=== PATIENT | female | born 1945 | race Caucasian/White ===

== ENCOUNTER 2022-12-09 23:03 | Observation (INO) | payer MEDICARE, MEDICAID, SELFPAY ==
[2022-12-10] VITALS (19 sets, daily range): BP systolic 117–138; BP diastolic 58–76; PULSE 60–68; RESP 18; TEMP 36.6–36.8; O2SAT 90–99; BMI 32.8
--- NOTE | 2022-12-10 02:34 | PC.NURSE ---
pt. awake alert. pt. is bedrest.
--- NOTE | 2022-12-10 04:07 | PC.NURSE ---
Patient had this site upon admission
--- NOTE | 2022-12-10 05:00 | ECG_ITS ---
The [facility] Test Date: 2022-12-10 Pat Name: Yanna Tenorio Department: Room: [facility] Gender: Female N[place] Up: : 1945 Requested By: [id number] Order Number: [id number] Reading MD: JONATHAN ARMIREZ Measurements Intervals [place] Rate: 65 P: 71 [place]: 170 QRS: 34 QRSD: 97 T: 29 QT: 420 QTc: 439 Interpretive Statements SINUS RHYTHM No previous ECG available for comparison Electronically Signed On 12-12-2022 15:32:09 EDT by JONATHAN RAMIREZ
[2022-12-10 05:37] LABS: Basophils Absolute Auto 0.1 10^3/uL (0.0-0.1); Basophils Percent Auto 0.5 % (0.2-2.0); Eosinophils Absolute Auto 0.5 10^3/uL (0.0-0.7); Eosinophils Percent Auto 3.9 % (0.9-7.0); Hematocrit 35.5 % (36.0-48.0); Hemoglobin 11.5 g/dL (12.0-16.0); Immature Granulocytes Abs Auto 0.06 10^3/uL (0.00-0.03); Immature Granulocytes Pct Auto 0.5 % (0.0-0.5); Lymphocytes Absolute Auto 2.7 10^3/uL (1.2-3.8); Lymphocytes Percent Auto 20.3 % (20.5-60.0); Mean Corpuscular HGB Conc 32.4 g/dL (29.9-35.2); Mean Corpuscular Hemoglobin 29.6 pg (26.7-34.0); Mean Corpuscular Volume 91.3 fL (81.0-99.0); Mean Platelet Volume 9.4 fL (9.5-13.5); Monocytes Absolute Auto 1.3 10^3/uL (0.3-0.8); Monocytes Percent Auto 10.1 % (1.7-12.0); Neutrophils Absolute Auto 8.6 10^3/uL (1.4-6.5); Neutrophils Percent Auto 64.7 % (43.0-75.0); Nucleated Red Blood Cells 0; Platelet Count 239 10^3/uL (150-450); Red Blood Count 3.89 10^6/uL (4.20-5.40); Red Cell Distribution Width 15.1 % (11.0-15.0); White Blood Count 13.2 10^3/uL (4.0-11.0)
[2022-12-10 06:11] LABS: Anion Gap 12.9; BUN Creatinine Ratio 26.9; Calcium 9.3 mg/dL (8.5-10.1); Chloride 97 mmol/L (98-107); Estimated GFR (African America 48 (>=60); Estimated GFR (Non-African Ame 40 (>=60); Glucose 111 mg/dL (74-106); Potassium 3.9 mmol/L (3.5-5.1); Sodium 138 mmol/L (136-145)
--- NOTE | 2022-12-10 06:52 | PC.NURSE ---
daily weight 85.7 kg
--- NOTE | 2022-12-10 08:44 | W.PM.TELEPN ---
Exam Constitutional Vital Signs, click to edit/add: Vital Signs - 24 hr 12/10/22 07:50 12/10/22 00:10 12/10/22 02:03 Temperature Pulse Rate 63 68 67 Respiratory Rate Blood Pressure [Left Arm] Pulse Oximetry Oxygen Delivery Method 12/10/22 03:57 12/10/22 05:37 12/10/22 05:18 Temperature 98 F Pulse Rate 63 64 Respiratory Rate 18 Blood Pressure [Left Arm] 117/58 L Pulse Oximetry 91 L 93 L Oxygen Delivery Method Room Air Room Air 12/10/22 06:11 Temperature Pulse Rate 64 Respiratory Rate Blood Pressure [Left Arm] Pulse Oximetry Oxygen Delivery Method Progress Note: Objective Labs Labs: Short CBC 12/10/22 Range/Units 05:08 WBC 13.2 H (4.0-11.0) 10^3/uL Hgb 11.5 L (12.0-16.0) g/dL Hct 35.5 L (36.0-48.0) % Plt Count 239 (150-450) 10^3/uL BMP 12/10/22 05:08 Sodium 138 Potassium 3.9 Chloride 97 L Carbon Dioxide 32.0 BUN 35.0 H Creatinine 1.30 H Glucose 111 H Calcium 9.3 Progress Note: A&P Fall Risk Details Dumont Fall Scale Risk Level: High Fall Risk Time Spent With Patient Time: Total time spent is greater than 50% in coordination of care (as documented) at patient's floor/unit and/or counseling patient: Telemedicine Attestation Telemedicine Attestation I conducted this encounter from [] via secure live, [id number] video conference with the patient, CHARGE TEST-CHARGES located at [facility] with []. Prior to the interview, the risks and benefits of telemedicine were discussed with the patient and verbal consent was obtained.
--- NOTE | 2022-12-10 11:16 | RESP.RT ---
Pt denies need for mdi at this time. No distress noted
[2022-12-10] MEDS: APIXABAN 5 MG TABLET PO ×2 (11:40→22:43)
[2022-12-10] MEDS: TIMOLOL MALEATE 0.5% OP SOL 100 DROPS/5 ML BOTTLE 1 DROP OP (11:40)
[2022-12-10] MEDS: DILTIAZEM HCL 120 MG CAP.ER.24H PO (11:40)
[2022-12-10] MEDS: METOPROLOL TARTRATE 100 MG TABLET PO ×2 (11:40→22:43)
[2022-12-10] MEDS: POTASSIUM CHLORIDE 10 MEQ ER TABLET 20 MEQ PO (11:43)
--- NOTE | 2022-12-10 12:43 | PM.HP ---
H&P: HPI History of Present Illness Chief complaint: CHF Narrative: Patient is a 77-year-old female with history of atrial fibrillation, on anticoagulation with Eliquis, dyslipidemia, hypertension, GERD, CAD, artificial mitral valve and aortic valve, pacemaker, and LEFT leg amputation who presented to the ED for evaluation of shortness of breath. She awakened at 8AM and was in atrial fibrillation and was notified by her device. This continued until 3PM when she developed shortness of breath and came to the ED for further evaluation. She is in sinus rhythm , has received 80mg IV Lasix in the ER and states that her symptoms are improving. She takes Bumex 2mg BID as outpatient. On lab work, she is noted to have a BNP of 5576 on admission. Last Echo was 11/02/22 and was unchanged from previous.She denies chest pain, fevers, chills, nausea, and cough. She reports she's been compliant with her medications and has also been on a fluid restriction. Review of Systems ROS Narrative ROS: a complete review of systems were reviewed with patient and are positive as below or listed in History of Chief Complaint. General: no fever, chills, night sweats Head: no headache, trauma, visual changes, nausea or vomiting Skin: no reported rashes, itching or sores Eyes: no blurriness of vision Ears: no reported hearing loss, vertigo, earache, or tinnitus Throat: no sore throat, hoarseness, swelling of neck, or tongue pain Heart: no chest pain Lungs: some shortness of breath, no cough GI: no diarrhea or vomiting/nausea Urinary: no urinary urgency, frequency or pain Neuro: no numbness or tingling HEM: no bleeding issues or bruising ENDO: no thyroid problems Psych: no anxiety or depression Meds Home Medications and Allergies Home Medications Medication Instructions Recorded Confirmed Type B-complex with vitamin C 1 tab PO ONCE 12/10/22 12/10/22 History albuterol sulfate 2.5 mg/3 mL 2.5 mg inhalation Q6H PRN 12/10/22 12/10/22 History (0.083 %) solution for nebulization shortness of breath or wheezing albuterol sulfate 90 mcg/actuation 2 puff inhalation Q6H PRN 12/10/22 12/10/22 History aerosol inhaler shortness of breath or wheezing apixaban 5 mg tablet (Eliquis) 5 mg PO Q12H 12/10/22 12/10/22 History aspirin 81 mg tablet,delayed 81 mg PO .daily 12/10/22 12/10/22 History release bumetanide 2 mg tablet 2 mg PO BID 12/10/22 12/10/22 History calcitriol 0.25 mcg capsule 0.25 mcg PO .daily 12/10/22 12/10/22 History calcium carbonate 500 mg-vitamin 1 tab PO QDAY 12/10/22 12/10/22 History D3 10 mcg (400 unit) tablet (Calcium 500 + D) diltiazem HCl 120 mg 120 mg PO Q24H 12/10/22 12/10/22 History capsule,extended release 24 hr guaifenesin 1,200 mg tablet, 1,200 mg PO Q12H PRN cough 12/10/22 12/10/22 History extended release 12 hr (Mucinex) levothyroxine 25 mcg tablet 50 mcg PO .daily 12/10/22 12/10/22 History magnesium oxide 400 mg PO TID 12/10/22 12/10/22 History metoprolol tartrate 100 mg tablet 100 mg PO Q12H 12/10/22 12/10/22 History omeprazole 40 mg capsule,delayed 40 mg PO .every day at bedtime 12/10/22 12/10/22 History release potassium chloride 20 mEq 20 meq PO .daily 12/10/22 12/10/22 History tablet,extended release(part/cryst) rosuvastatin 20 mg tablet 20 mg PO .daily 12/10/22 12/10/22 History spironolactone 25 mg tablet 25 mg PO .daily 12/10/22 12/10/22 History timolol maleate 0.5 % eye drops 1 drp ophthalmic (eye) Q12H 12/10/22 12/10/22 History zinc 50 mg tablet 50 mg PO QDAY 12/10/22 12/10/22 History Allergies Allergy/AdvReac Type Severity Reaction Status Date / Time cortisone Allergy Severe Verified 12/10/22 01:22 Penicillins Allergy Severe Rash Verified 12/10/22 01:22 meperidine [From Demerol] AdvReac Severe Verified 12/10/22 01:22 iv dye Allergy Severe Hives Uncoded 12/10/22 01:22 BACTRIM Allergy Uncoded 12/10/22 01:22 Exam Narrative: Exam Narrative: General: Patient is alert, and oriented to person, place and time with normal affect, proper hygiene, appears in no acute distress Skin: no visible rashes, or ulcers Head: atraumatic, acephalic Eyes: PERRLA, no nystagmus present, conjunctiva clear, no scleral icterus Ears: normal gross auditory acuity Neck: no masses palpated, normal thyroid, no JVD or audible carotid bruits Heart: Normal rate and rhythm, no murmurs/rubs/gallops Lungs: no audible wheezes, crackles and normal breath sounds all lung sung Abdomen: Normal audible bowel sounds, no distension, No palpable masses, no organomegaly, no rebound/guarding/ or rigidity Musculoskeletal: muscle atrophy noted, left leg amputation Vascular: Normal carotid, radial, femoral, posterior tibial, and dorsalis pedis pulses Lymph: no supraclavicular, axillary, or anterior/posterior cervical adenopathy Neuro: CN II-X grossly intact, normal sensation upper and lower extremities Constitutional: Vital Signs, click to edit/add: Vital Signs - 24 hr 12/10/22 07:50 12/10/22 10:26 12/10/22 11:13 Temperature Pulse Rate 63 62 Respiratory Rate Blood Pressure [Le ft Arm] Pulse Oximetry 95 Oxygen Delivery Me thod Room Air 12/10/22 11:48 12/10/22 12:01 12/10/22 00:10 Temperature 98.0 F Pulse Rate 62 62 68 Respiratory Rate 18 Blood Pressure [Le ft Arm] 138/76 H Pulse Oximetry 92 L Oxygen Delivery Me thod 12/10/22 02:03 12/10/22 03:57 12/10/22 05:37 Temperature 98 F Pulse Rate 67 63 64 Respiratory Rate 18 Blood Pressure [Le ft Arm] 117/58 L Pulse Oximetry 91 L Oxygen Delivery Me thod Room Air 12/10/22 05:18 12/10/22 06:11 Temperature Pulse Rate 64 Respiratory Rate Blood Pressure [Le ft Arm] Pulse Oximetry 93 L Oxygen Delivery Me thod Room Air Results Labs Labs: Short CBC 12/10/22 Range/Units 05:08 WBC 13.2 H (4.0-11.0) 10^3/uL Hgb 11.5 L (12.0-16.0) g/dL Hct 35.5 L (36.0-48.0) % Plt Count 239 (150-450) 10^3/uL BMP 12/10/22 05:08 Sodium 138 Potassium 3.9 Chloride 97 L Carbon Dioxide 32.0 BUN 35.0 H Creatinine 1.30 H Glucose 111 H Calcium 9.3 Assessment and Plan Assessment and Plan (1) Acute on chronic diastolic congestive heart failure: (2) Atrial fibrillation with controlled ventricular response: Plan #1 acute decompensated diastolic heart failure-elevated proBNP, is placed on telemetry with a 1.5 L fluid restriction. Placed on Lasix 80 mg IV once a day, hold home Bumex. Echocardiogram 10/2022 was unchanged. continue to monitor daily weights and strict ins and outs. continue spironolactone #2 history of atrial fibrillation-continue home medications of dilt, isosorbide, metoprolol and Eliquis #3 artificial mitral and aortic valves, pacemaker-patient will be continued on Eliquis #4 CAD, history of CABG- continue rosuvastatin and eliquis #5 HTN- continue home meds listed above #6 hypothyroidism continue levothyroxine #7 hypomagnesemia-monitor daily magnesium and continue oral supplements #8 GERD continue omeprazole #9 [id number] type 2 diabetes-on metformin continue sliding scale insulin #10 chronic kidney disease stage III-monitor daily especially with diuresis patient will continue on Eliquis for deep vein thrombosis prophylaxis patient is a full code Patient is observation status and is expected to stay no more than two midnights
--- NOTE | 2022-12-10 12:54 | SWNOTE1 ---
SW met with pt to discuss dc needs. Pt voiced she is doing well at home, no concerns for discharge. She uses her wheelchair at home and has been up and down the hallways. PATRICK voiced to pt that she does seem a little down today, but pt stated she was fine. No HH currently coming in and pt does not want/or need any HH. At this time pt has no dishcarge needs.
[2022-12-10] MEDS: MAGNESIUM OXIDE 400 MG TABLET PO ×2 (13:28→22:43)
[2022-12-10] MEDS: FUROSEMIDE 40 MG/4 ML VIAL IVP (13:28)
[2022-12-10 14:52] LABS: Glucometer 136 mg/dL (74-106)
[2022-12-10 16:24] LABS: Glucometer 141 mg/dL (74-106)
[2022-12-10 20:25] LABS: Glucometer 154 mg/dL (74-106)
[2022-12-11] VITALS (10 sets, daily range): BP systolic 108–128; BP diastolic 69–76; PULSE 60–71; RESP 18–20; TEMP 36.3–36.6; O2SAT 93–96
[2022-12-11] MEDS: TIMOLOL MALEATE 0.5% OP SOL 100 DROPS/5 ML BOTTLE 1 DROP OP ×2 (01:22→08:48)
[2022-12-11] MEDS: FUROSEMIDE 40 MG/4 ML VIAL IVP ×2 (01:22→08:41)
[2022-12-11] MEDS: MAGNESIUM OXIDE 400 MG TABLET PO ×2 (05:04→14:09)
[2022-12-11 05:52] LABS: Basophils Absolute Auto 0.1 10^3/uL (0.0-0.1); Basophils Percent Auto 0.6 % (0.2-2.0); Eosinophils Absolute Auto 0.5 10^3/uL (0.0-0.7); Eosinophils Percent Auto 4.3 % (0.9-7.0); Hemoglobin 11.4 g/dL (12.0-16.0); Immature Granulocytes Abs Auto 0.07 10^3/uL (0.00-0.03); Immature Granulocytes Pct Auto 0.6 % (0.0-0.5); Lymphocytes Absolute Auto 2.8 10^3/uL (1.2-3.8); Lymphocytes Percent Auto 23.3 % (20.5-60.0); Mean Corpuscular HGB Conc 32.6 g/dL (29.9-35.2); Mean Corpuscular Hemoglobin 29.8 pg (26.7-34.0); Mean Corpuscular Volume 91.6 fL (81.0-99.0); Mean Platelet Volume 9.6 fL (9.5-13.5); Monocytes Absolute Auto 1.2 10^3/uL (0.3-0.8); Monocytes Percent Auto 9.9 % (1.7-12.0); Neutrophils Absolute Auto 7.3 10^3/uL (1.4-6.5); Neutrophils Percent Auto 61.3 % (43.0-75.0); Nucleated Red Blood Cells 0; Platelet Count 238 10^3/uL (150-450); Red Blood Count 3.82 10^6/uL (4.20-5.40); Red Cell Distribution Width 15.2 % (11.0-15.0); White Blood Count 11.9 10^3/uL (4.0-11.0)
[2022-12-11 08:12] LABS: Glucometer 118 mg/dL (74-106)
[2022-12-11] MEDS: ASPIRIN 81 MG TABLET.DR PO (08:37)
[2022-12-11 08:40] LABS: Alanine Aminotransferase 18 U/L (14-59); Albumin Globulin Ratio 0.8; Albumin Level 3.3 g/dL (3.4-5.0); Alkaline Phosphatase 103 U/L (46-116); Anion Gap 10.3; Aspartate Amino Transferase 17 U/L (15-37); BUN Creatinine Ratio 33.6; Bilirubin Total 0.3 mg/dL (0.2-1.0); Calcium 9.2 mg/dL (8.5-10.1); Carbon Dioxide 33.5 mmol/L (21.0-32.0); Chloride 96 mmol/L (98-107); Estimated GFR (African America 52 (>=60); Estimated GFR (Non-African Ame 43 (>=60); Globulin 4.2 g/dL; Glucose 118 mg/dL (74-106); Potassium 3.8 mmol/L (3.5-5.1); Sodium 136 mmol/L (136-145); Total Protein 7.5 g/dL (6.4-8.2)
[2022-12-11] MEDS: APIXABAN 5 MG TABLET PO (08:40)
[2022-12-11] MEDS: DILTIAZEM HCL 120 MG CAP.ER.24H PO (08:40)
[2022-12-11] MEDS: METOPROLOL TARTRATE 100 MG TABLET PO (08:43)
[2022-12-11] MEDS: SPIRONOLACTONE 25 MG TABLET PO (08:45)
[2022-12-11] MEDS: POTASSIUM CHLORIDE 10 MEQ ER TABLET 20 MEQ PO (08:47)
[2022-12-11 08:50] LABS: Magnesium 2.2 mg/dL (1.8-2.4); Thyroid Stimulating Hormone 3.872 uIU/mL (0.358-3.740)
--- NOTE | 2022-12-11 10:48 | CM.NOTE ---
Rounds made with rosmery Carlos for discharge to home today. No discharge needs at this time.
[2022-12-11] MEDS: LEVOTHYROXINE SODIUM 25 MCG TABLET 50 MCG PO (11:31)
[2022-12-11 11:34] LABS: Glucometer 114 mg/dL (74-106)
--- NOTE | 2022-12-11 12:03 | PM.DS1 ---
DS: Providers Provider Date of admission: 12/09/22 23:03 Primary care physician: TEST TEST DS: Diagnosis Discharge Diagnosis (1) Acute on chronic diastolic congestive heart failure: (2) Atrial fibrillation with controlled ventricular response: DS: Summary Hospital Course Hospital Course: #1 acute decompensated diastolic heart failure-elevated proBNP 5,000 on admission, now 2,000, is placed on telemetry with a 1.5 L fluid restriction. Placed on Lasix 40 mg IV bid, hold home Bumex. Echocardiogram 10/2022 was unchanged, no reason for repeat. continue to monitor daily weights and strict ins and outs. continue spironolactone. Home today. Not requiring any oxygen, no swelling, in no acute distress and wheeling down the hallway #2 history of atrial fibrillation-continue home medications of dilt, isosorbide, metoprolol and Eliquis #3 artificial mitral and aortic valves, pacemaker-patient will be continued on Eliquis #4 CAD, history of CABG- continue rosuvastatin and eliquis #5 HTN- continue home meds listed above #6 hypothyroidism continue levothyroxine #7 hypomagnesemia-monitor daily magnesium and continue oral supplements #8 GERD continue omeprazole #9 [id number] type 2 diabetes-on metformin continue sliding scale insulin #10 chronic kidney disease stage III-monitor daily especially with diuresis close 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, in NSR, symptoms have improved and patient now at baseline Status at Discharge Functional status at discharge: wheelchair bound Time Spent with Patient Time attestation: Total time spent providing and/or coordinating discharge services: Time spent: less than 30 minutes Exam Narrative: Exam Narrative: General: Patient is alert, and oriented to person, place and time with normal affect, proper hygiene Skin: no visible rashes, or ulcers Head: atraumatic, acephalic Eyes: PERRLA, no nystagmus present, conjunctiva clear, no scleral icterus Ears: normal gross auditory acuity Nose: symmetric, no discharge, no maxillary or frontal sinus tenderness Mouth/Throat: no erythema, exudate, or tonsillar enlargement, normal dentition Neck: no masses palpated, normal thyroid, no JVD or audible carotid bruits Heart: Normal rate and rhythm, paced, no murmurs/rubs/gallops Lungs: no audible wheezes, crackles and normal breath sounds all lung sung Musculoskeletal: , no swelling right lower extremities, Left Below the hip amputation Lymph: no supraclavicular, axillary, or anterior/posterior cervical adenopathy Neuro: CN II-X grossly intact, normal sensation upper and lower extremities Constitutional: Vital Signs, click to edit/add: Vital Signs - 24 hr 12/10/22 14:07 12/10/22 16:00 12/10/22 18:09 Temperature Pulse Rate 66 61 61 Respiratory Rate Blood Pressure [Ri ght Arm] Pulse Oximetry Oxygen Delivery Me thod 12/10/22 20:05 12/10/22 20:23 12/10/22 20:21 Temperature Pulse Rate 64 Respiratory Rate 18 Blood Pressure [Ri ght Arm] Pulse Oximetry 99 Oxygen Delivery Me thod Room Air 12/10/22 21:27 12/10/22 22:03 12/11/22 00:03 Temperature 98.3 F Pulse Rate 61 60 62 Respiratory Rate 18 Blood Pressure [Ri ght Arm] 125/71 H Pulse Oximetry 90 L Oxygen Delivery Me thod Room Air 12/11/22 02:02 12/11/22 04:47 12/11/22 04:50 Temperature 97.9 F Pulse Rate 71 65 66 Respiratory Rate 18 Blood Pressure [Ri ght Arm] 108/69 Pulse Oximetry 96 Oxygen Delivery Me thod Room Air 12/11/22 06:13 12/11/22 07:58 12/11/22 09:51 Temperature Pulse Rate 60 60 61 Respiratory Rate Blood Pressure [Ri ght Arm] Pulse Oximetry Oxygen Delivery Me thod 12/11/22 11:53 Temperature Pulse Rate 60 Respiratory Rate Blood Pressure [Ri ght Arm] Pulse Oximetry Oxygen Delivery Me thod DS: Data Data Completed and Pending Labs on day of discharge: Labs from last 24 hours 12/11/22 12/11/22 12/11/22 11:29 08:03 04:32 WBC 11.9 H RBC 3.82 L Hgb 11.4 L Hct 35.0 L MCV 91.6 MCH 29.8 MCHC 32.6 RDW 15.2 H Plt Count 238 MPV 9.6 Neut % (Auto) 61.3 Lymph % (Auto) 23.3 [place] % (Auto) 9.9 Eos % (Auto) 4.3 Baso % (Auto) 0.6 Neut # (Auto) 7.3 H Lymph # (Auto) 2.8 [place] # (Auto) 1.2 H Eos # (Auto) 0.5 Baso # (Auto) 0.1 Nucleated RBCs 0 Sodium 136 Potassium 3.8 Chloride 96 L Carbon Dioxide 33.5 H Anion Gap 10.3 BUN 41.0 H Creatinine 1.22 H Est GFR ( Amer) 52 L Est GFR (Non-Af Amer) 43 L BUN/Creatinine Ratio 33.6 Glucose 118 H Glucometer 114 H 118 H Calcium 9.2 Magnesium 2.2 Total Bilirubin 0.3 AST 17 ALT 18 NT-Pro-B Natriuret Pep 2044.0 H* Total Protein 7.5 Albumin 3.3 L Globulin 4.2 Albumin/Globulin Ratio 0.8 TSH 3.872 H 12/10/22 12/10/22 12/10/22 20:24 16:18 11:23 WBC RBC Hgb Hct MCV MCH MCHC RDW Plt Count MPV Neut % (Auto) Lymph % (Auto) [place] % (Auto) Eos % (Auto) Baso % (Auto) Neut # (Auto) Lymph # (Auto) [place] # (Auto) Eos # (Auto) Baso # (Auto) Nucleated RBCs Sodium Potassium Chloride Carbon Dioxide Anion Gap BUN Creatinine Est GFR ( Amer) Est GFR (Non-Af Amer) BUN/Creatinine Ratio Glucose Glucometer 154 H 141 H 136 H Calcium Magnesium Total Bilirubin AST ALT NT-Pro-B Natriuret Pep Total Protein Albumin Globulin Albumin/Globulin Ratio TSH Discharge Plan Discharge Disposition: Home, Self-Care Discharge Medications: Continued albuterol sulfate 2.5 mg /3 mL (0.083 %) solution for nebulization 2.5 mg inhalation Q6H PRN (Reason: shortness of breath or wheezing) albuterol sulfate 90 mcg/actuation HFA aerosol inhaler 2 puff INHALATION Q6H PRN (Reason: shortness of breath or wheezing) Eliquis 5 mg tablet 5 mg PO Q12H aspirin 81 mg tablet,delayed release (DR/EC) 81 mg PO .daily bumetanide 2 mg tablet 2 mg PO BID B-complex with vitamin C Tablet 1 tab PO ONCE calcitriol 0.25 mcg capsule 0.25 mcg PO .daily calcium carbonate-vitamin D3 [Calcium 500 + D] 500 mg-10 mcg (400 unit) tablet 1 tab PO QDAY diltiazem HCl 120 mg capsule,extended release 24hr 120 mg PO Q24H Mucinex 1,200 mg tablet extended release 12hr 1,200 mg PO Q12H PRN (Reason: cough) levothyroxine 25 mcg tablet 50 mcg PO .daily magnesium oxide 400 mg magnesium capsule 400 mg PO TID metoprolol tartrate 100 mg tablet 100 mg PO Q12H omeprazole 40 mg capsule,delayed release(DR/EC) 40 mg PO .every day at bedtime timolol maleate 0.5 % drops 1 drp ophthalmic (eye) Q12H potassium chloride 20 mEq tablet,ER particles/crystals 20 meq PO .daily spironolactone 25 mg tablet 25 mg PO .daily rosuvastatin 20 mg tablet 20 mg PO .daily zinc 50 mg tablet 50 mg PO QDAY Activity: resume usual activities as tolerated and wear oxygen at night Diet: diabetic diet and low salt diet Forms: Portal Instructions Follow Up Appointments: her stock parts fabricator 1 week, no changes to home medications
[2022-12-11 16:03] LABS: Glucometer 199 mg/dL (74-106)
== END 2022-12-11 16:58 | disposition home or self-care (01) ==
PROVIDERS: Admitting Provider Family Medicine; Visit Provider Internal Medicine
DX: I13.0 Hypertensive heart and chronic kidney disease with heart failure and stage 1 through stage 4 chronic kidney disease, or unspecified chronic kidney disease (principal); I50.33 Acute on chronic diastolic (congestive) heart failure; I48.91 Unspecified atrial fibrillation; I11.0 Hypertensive heart disease with heart failure; E11.22 Type 2 diabetes mellitus with diabetic chronic kidney disease; N18.30 Chronic kidney disease, stage 3 unspecified; I25.10 Atherosclerotic heart disease of native coronary artery without angina pectoris; E03.9 Hypothyroidism, unspecified; E83.42 Hypomagnesemia; K21.9 Gastro-esophageal reflux disease without esophagitis; Z95.1 Presence of aortocoronary bypass graft; Z95.0 Presence of cardiac pacemaker; Z95.2 Presence of prosthetic heart valve; Z79.890 Hormone replacement therapy; Z79.84 Long term (current) use of oral hypoglycemic drugs; Z79.01 Long term (current) use of anticoagulants; Z79.899 Other long term (current) drug therapy; Z89.612 Acquired absence of left leg above knee
CPT/HCPCS: 36415; 71045; 80048; 80053; 82948; 83735; 83880; 84443; 84484; 85025; 85610; 85730; 87635; 87811; 93005; 94761; 96374; 96376; 97165; 99285; G0378; Q3014; U0003

== ENCOUNTER 2022-12-26 15:38 | Emergency (ER) | payer MEDICARE, MEDICAID, SELFPAY ==
[2022-12-26] VITALS (7 sets, daily range): BP systolic 115–132; BP diastolic 46–64; PULSE 62–64; RESP 18–28; TEMP 36.6; O2SAT 95–98
--- NOTE | 2022-12-26 15:54 | ECG_ITS ---
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
--- NOTE | 2022-12-26 15:54 | XR_ITS ---
The [address] [address] Patient Name: LOKI SALEH MRN: [id number] date: 1945 Sex: F Assigned Patient Location: ER Current Patient Location: ER Accession/Order Number: [id number] Exam Date: 12/26/2022 16:12 Report Date: 12/26/2022 16:34 At the request of: ANNAMARIE PEREA Procedure: XR chest 1V PROCEDURE: XR chest 1V DATE: 12/26/2022 3:12 PM CDT COMPARISONS: 12/09/2022 CLINICAL INDICATION: 77 years Female dyspnea FINDINGS: The cardiomediastinal silhouette and pulmonary vasculature are within normal limits. There is slight infrahilar atelectasis, right greater than left, due to less than optimal inspiratory radiograph. The lungs are otherwise clear. There is no evidence of pleural effusion or pneumothorax. Poststernotomy changes again identified. Electronic cardiac device is in stable position. IMPRESSION: Chest radiograph is essentially within normal limits. Electronically authenticated by: MIGUEL ANGEL HOLDER Date: 12/26/2022 16:34
--- NOTE | 2022-12-26 15:58 | ED.SOB1 ---
HPI - SOB/Dyspnea General Chief Complaint: Shortness of Breath/Dyspnea Stated Complaint: SOB/HEART FAILURE Time Seen by Provider: 12/26/22 15:54 Source: patient Mode of arrival: Wheelchair Limitations: physical limitation Limitations comment: pt is a L leg amputee History of Present Illness HPI Narrative: patient presents with shortness of breath. She is fearful that she may be in congestive heart failure. She states that she has not had previous myocardial infarction. She has had two heart valves replaced, one big valve one GABRIEL valve at [facility]. At was about three years ago. 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 She states that she has slight increased swelling on the right. She's not had cough congestion runny nose sore throat or sputum production. She's not had having a squeezing pressure or discomfort in her chest arm or neck. She's not change her medications and she's been compliant. Her vital signs are good here with a pulse oximetry ninety-seven percent on room air. She does wear oxygen at nighttime only. He has not had a fever. Related Data Home Medications Medication Instructions Recorded Confirmed B-complex with vitamin C 1 tab PO ONCE 12/10/22 12/10/22 albuterol sulfate 2.5 mg/3 mL 2.5 mg inhalation Q6H PRN 12/10/22 12/10/22 (0.083 %) solution for nebulization shortness of breath or wheezing albuterol sulfate 90 mcg/actuation 2 puff inhalation Q6H PRN 12/10/22 12/10/22 aerosol inhaler shortness of breath or wheezing apixaban 5 mg tablet (Eliquis) 5 mg PO Q12H 12/10/22 12/10/22 aspirin 81 mg tablet,delayed 81 mg PO .daily 12/10/22 12/10/22 release bumetanide 2 mg tablet 2 mg PO BID 12/10/22 12/10/22 calcitriol 0.25 mcg capsule 0.25 mcg PO .daily 12/10/22 12/10/22 calcium carbonate 500 mg-vitamin 1 tab PO QDAY 12/10/22 12/10/22 D3 10 mcg (400 unit) tablet (Calcium 500 + D) diltiazem HCl 120 mg 120 mg PO Q24H 12/10/22 12/10/22 capsule,extended release 24 hr guaifenesin 1,200 mg tablet, 1,200 mg PO Q12H PRN cough 12/10/22 12/10/22 extended release 12 hr (Mucinex) levothyroxine 25 mcg tablet 50 mcg PO .daily 12/10/22 12/10/22 magnesium oxide 400 mg PO TID 12/10/22 12/10/22 metoprolol tartrate 100 mg tablet 100 mg PO Q12H 12/10/22 12/10/22 omeprazole 40 mg capsule,delayed 40 mg PO .every day at bedtime 12/10/22 12/10/22 release potassium chloride 20 mEq 20 meq PO .daily 12/10/22 12/10/22 tablet,extended release(part/cryst) rosuvastatin 20 mg tablet 20 mg PO .daily 12/10/22 12/10/22 spironolactone 25 mg tablet 25 mg PO .daily 12/10/22 12/10/22 timolol maleate 0.5 % eye drops 1 drp ophthalmic (eye) Q12H 12/10/22 12/10/22 zinc 50 mg tablet 50 mg PO QDAY 12/10/22 12/10/22 Allergies Allergy/AdvReac Type Severity Reaction Status Date / Time cortisone Allergy Severe Verified 12/26/22 15:50 Penicillins Allergy Severe Rash Verified 12/26/22 15:50 meperidine [From Demerol] AdvReac Severe Verified 12/26/22 15:50 iv dye Allergy Severe Hives Uncoded 12/26/22 15:50 BACTRIM Allergy Uncoded 12/26/22 15:50 PFSH PFSH Social History Smoking status: Never smoker Exam Narrative Exam Narrative: patient awake alert good historian in good spirits does not appear acutely ill vital signs have been reviewed Constitutional Vital Signs - 24 hr 12/26/22 15:50 Temperature 97.9 F Pulse Rate [Monitor] 64 Respiratory Rate 18 Blood Pressure [Right Arm] 120/51 H Pulse Oximetry 96 Oxygen Delivery Method Room Air [facility] Common normals: normocephalic and head/scalp atraumatic Neck & C-Spine Common normals: no meningeal signs General: trachea midline Respiratory Common normals: normal respiratory effort Other: mild rales right lung base only no wheezing Extremity Other: amputee on the left. Right distal leg shows no pitting edema, no ropiness no erythema or evidence of infection Course Vital Signs Vital signs: Vital Signs Temperature 97.9 F 12/26/22 15:50 Pulse Rate 64 12/26/22 15:50 Respiratory Rate 18 12/26/22 15:50 Blood Pressure 120/51 H 12/26/22 15:50 Pulse Oximetry 96 12/26/22 15:50 Oxygen Delivery Method Room Air 12/26/22 15:50 Temperature 97.9 F 12/26/22 15:50 Pulse Rate 62 12/26/22 16:31 Respiratory Rate 20 12/26/22 16:31 Blood Pressure 132/57 H 12/26/22 17:01 Pulse Oximetry 95 12/26/22 16:31 Oxygen Delivery Method Room Air 12/26/22 15:50 MDM - SOB/Dyspnea MDM Narrative Medical decision making narrative: patient's BNP is chronically mildly elevated and it's not substantially elevated today from previous. Chest x-ray is read as atelectasis. Other chemistries are as somewhat improved but her white blood cell count is increasing. With these symptoms and x-ray findings I will treat her for more of an infectious process. This was discussed with the patient I do not see exacerbation of congestive heart failure at this stage Lab Data Labs: Lab Results 12/26/22 Range/Units 16:05 WBC 14.3 H (4.0-11.0) 10^3/uL RBC 4.07 L (4.20-5.40) 10^6/uL Hgb 12.1 (12.0-16.0) g/dL Hct 37.6 (36.0-48.0) % MCV 92.4 (81.0-99.0) fL MCH 29.7 (26.7-34.0) pg MCHC 32.2 (29.9-35.2) g/dL RDW 14.8 (11.0-15.0) % Plt Count 293 (150-450) 10^3/uL MPV 9.3 L (9.5-13.5) fL Neut % (Auto) 69.8 (43.0-75.0) % Lymph % (Auto) 17.7 L (20.5-60.0) % [place] % (Auto) 7.1 (1.7-12.0) % Eos % (Auto) 4.3 (0.9-7.0) % Baso % (Auto) 0.6 (0.2-2.0) % Neut # (Auto) 10.0 H (1.4-6.5) 10^3/uL Lymph # (Auto) 2.5 (1.2-3.8) 10^3/uL [place] # (Auto) 1.0 H (0.3-0.8) 10^3/uL Eos # (Auto) 0.6 (0.0-0.7) 10^3/uL Baso # (Auto) 0.1 (0.0-0.1) 10^3/uL Abs Immat Gran (auto) 0.07 H (0.00-0.03) 10^3/uL Imm/Tot Granulo (auto) 0.5 (0.0-0.5) % Sodium 134 L (136-145) mmol/L Potassium 3.7 (3.5-5.1) mmol/L Chloride 95 L (98-107) mmol/L Carbon Dioxide 31.3 (21.0-32.0) mmol/L Anion Gap 11.4 BUN 34.0 H (7.0-18.0) mg/dL Creatinine 1.33 H (0.55-1.02) mg/dL Est GFR ( Amer) 47 L (>=60) Est GFR (Non-Af Amer) 39 L (>=60) BUN/Creatinine Ratio 25.6 Glucose 160 H (74-106) mg/dL Calcium 9.5 (8.5-10.1) mg/dL Troponin I High Sens 10.5 (4.0-51.3) pg/mL NT-Pro-B Natriuret Pep 2249.0 H* (<=1800.0) pg/mL Discharge Plan Discharge Chief Complaint: Shortness of Breath/Dyspnea Clinical Impression: Acute dyspnea Patient Disposition: Home, Self-Care Time of Disposition Decision: 16:57 Prescriptions / Home Meds: No Action albuterol sulfate 2.5 mg /3 mL (0.083 %) solution for nebulization 2.5 mg inhalation Q6H PRN (Reason: shortness of breath or wheezing) albuterol sulfate 90 mcg/actuation HFA aerosol inhaler 2 puff INHALATION Q6H PRN (Reason: shortness of breath or wheezing) Eliquis 5 mg tablet 5 mg PO Q12H aspirin 81 mg tablet,delayed release (DR/EC) 81 mg PO .daily bumetanide 2 mg tablet 2 mg PO BID B-complex with vitamin C Tablet 1 tab PO ONCE calcitriol 0.25 mcg capsule 0.25 mcg PO .daily calcium carbonate-vitamin D3 [Calcium 500 + D] 500 mg-10 mcg (400 unit) tablet 1 tab PO QDAY diltiazem HCl 120 mg capsule,extended release 24hr 120 mg PO Q24H Mucinex 1,200 mg tablet extended release 12hr 1,200 mg PO Q12H PRN (Reason: cough) levothyroxine 25 mcg tablet 50 mcg PO .daily magnesium oxide 400 mg magnesium capsule 400 mg PO TID metoprolol tartrate 100 mg tablet 100 mg PO Q12H omeprazole 40 mg capsule,delayed release(DR/EC) 40 mg PO .every day at bedtime timolol maleate 0.5 % drops 1 drp ophthalmic (eye) Q12H potassium chloride 20 mEq tablet,ER particles/crystals 20 meq PO .daily spironolactone 25 mg tablet 25 mg PO .daily rosuvastatin 20 mg tablet 20 mg PO .daily zinc 50 mg tablet 50 mg PO QDAY Instructions: Dyspnea (ED) Stand Alone Forms: Portal Instructions Referrals: Chris Valera [Primary Care Provider] - 1 week Discharge Date/Time: 12/26/22 17:35
[2022-12-26 16:24] LABS: Basophils Absolute Auto 0.1 10^3/uL (0.0-0.1); Basophils Percent Auto 0.6 % (0.2-2.0); Eosinophils Absolute Auto 0.6 10^3/uL (0.0-0.7); Eosinophils Percent Auto 4.3 % (0.9-7.0); Hematocrit 37.6 % (36.0-48.0); Hemoglobin 12.1 g/dL (12.0-16.0); Immature Granulocytes Abs Auto 0.07 10^3/uL (0.00-0.03); Immature Granulocytes Pct Auto 0.5 % (0.0-0.5); Lymphocytes Absolute Auto 2.5 10^3/uL (1.2-3.8); Lymphocytes Percent Auto 17.7 % (20.5-60.0); Mean Corpuscular HGB Conc 32.2 g/dL (29.9-35.2); Mean Corpuscular Hemoglobin 29.7 pg (26.7-34.0); Mean Corpuscular Volume 92.4 fL (81.0-99.0); Mean Platelet Volume 9.3 fL (9.5-13.5); Monocytes Percent Auto 7.1 % (1.7-12.0); Neutrophils Percent Auto 69.8 % (43.0-75.0); Platelet Count 293 10^3/uL (150-450); Red Blood Count 4.07 10^6/uL (4.20-5.40); Red Cell Distribution Width 14.8 % (11.0-15.0); White Blood Count 14.3 10^3/uL (4.0-11.0)
[2022-12-26 16:47] LABS: Anion Gap 11.4; BUN Creatinine Ratio 25.6; Calcium 9.5 mg/dL (8.5-10.1); Carbon Dioxide 31.3 mmol/L (21.0-32.0); Chloride 95 mmol/L (98-107); Estimated GFR (African America 47 (>=60); Estimated GFR (Non-African Ame 39 (>=60); Glucose 160 mg/dL (74-106); Potassium 3.7 mmol/L (3.5-5.1); Sodium 134 mmol/L (136-145); Troponin I High Sensitivity 10.5 pg/mL (4.0-51.3)
[2022-12-26] MEDS: LEVOFLOXACIN 500 MG TABLET PO (17:24)
== END 2022-12-26 17:35 | disposition home or self-care (01) ==
PROVIDERS: Emergency Provider Emergency Medicine Emergency Medical Services; PCP Physician Assistant
DX: R06.00 Dyspnea, unspecified (principal); R06.02 Shortness of breath; Z95.2 Presence of prosthetic heart valve; Z79.82 Long term (current) use of aspirin; Z79.899 Other long term (current) drug therapy; Z89.612 Acquired absence of left leg above knee
CPT/HCPCS: 36415; 71045; 80048; 83880; 84484; 85025; 93005; 99285

== ENCOUNTER 2023-01-06 20:00 | Outpatient (REF) | payer MEDICARE, MEDICAID, SELFPAY | END 2023-01-06 20:01 | disposition home or self-care (01) | LOC: LAB 20:00 | PROVIDERS: PCP Physician Assistant; Visit Provider Nurse Practitioner Primary Care | DX: R30.0 Dysuria (principal) | CPT/HCPCS: 87086; 87150; 87186 ==

== ENCOUNTER 2023-01-08 17:43 | Emergency (ER) | payer MEDICARE, MEDICAID, SELFPAY ==
[2023-01-08 17:50] VITALS: BP 139/63; PULSE 83; RESP 16; TEMP 36.6; O2SAT 97; BMI 34.0
--- NOTE | 2023-01-08 18:00 | XR_ITS ---
[address] [address] Patient Name: LOKI SALEH MRN: [id number] date: 1945 Sex: F Assigned Patient Location: ER Current Patient Location: ED.MAIN Accession/Order Number: [id number] Exam Date: 01/08/2023 18:22 Report Date: 01/08/2023 18:57 At the request of: KWAN WATT Procedure: XR chest 1V EXAMINATION: XR chest 1V HISTORY: Shortness of breath COMPARISON: Portable chest 12/26/2022 TECHNIQUE: Portable chest FINDINGS: The lung parenchyma is free of consolidation or infiltrate. No pneumothorax or pleural effusion. Status post median sternotomy and left-sided cardiac pacemaker. The cardiac, mediastinal and hilar contours are normal. The visualized osseous structures exhibit no gross abnormality. IMPRESSION: No acute cardiopulmonary abnormality. Electronically authenticated by: NADEGE DEAN Date: 01/08/2023 18:57
--- NOTE | 2023-01-08 18:02 | ECG_ITS ---
[facility] Test Date: 2023-01-08 Pat Name: LOKI SALEH Department: Room: - Gender: Female Size Mixer: : 1945 Requested By: 1030 Order Number: [id number] Reading MD: JONATHAN RAMIREZ Measurements Intervals [place] Rate: 67 P: 56 FL: 164 QRS: 43 QRSD: 84 T: 43 QT: 414 QTc: 430 Interpretive Statements 1100 Sinus rhythm 3433 Septal myocardial infarction, probably old 8102 Low QRS voltage in chest leads 9150 abnormal ECG Compared to ECG 12/26/2022 15:57:16 Myocardial infarct finding now present Electronically Signed On 01-10-2023 11:41:17 EDT by JONATHAN RAMIREZ
--- NOTE | 2023-01-08 18:03 | ED.SOB1 ---
HPI - SOB/Dyspnea General Chief Complaint: Shortness of Breath/Dyspnea Stated Complaint: HEADACHE/NEW MED THE PROBLEM? Time Seen by Provider: 01/08/23 17:55 Source: patient Mode of arrival: Wheelchair Limitations: physical limitation History of Present Illness HPI Narrative: 77-year-old female presents for shortness of breath. She seems to have had this for a few days. No fever or productive cough and she is not complaining of chest pain. She called her doctor today who told her to go to the Emergency Room to get checked out. She was started on a new medication three days ago but she doesn't know the name of it. Chronic obstructive pulmonary disease and congestive heart failure. Related Data Home Medications Medication Instructions Recorded Confirmed B-complex with vitamin C 1 tab PO ONCE 12/10/22 12/10/22 albuterol sulfate 2.5 mg/3 mL 2.5 mg inhalation Q6H PRN 12/10/22 12/10/22 (0.083 %) solution for nebulization shortness of breath or wheezing albuterol sulfate 90 mcg/actuation 2 puff inhalation Q6H PRN 12/10/22 12/10/22 aerosol inhaler shortness of breath or wheezing apixaban 5 mg tablet (Eliquis) 5 mg PO Q12H 12/10/22 12/10/22 aspirin 81 mg tablet,delayed 81 mg PO .daily 12/10/22 12/10/22 release bumetanide 2 mg tablet 2 mg PO BID 12/10/22 12/10/22 calcitriol 0.25 mcg capsule 0.25 mcg PO .daily 12/10/22 12/10/22 calcium carbonate 500 mg-vitamin 1 tab PO QDAY 12/10/22 12/10/22 D3 10 mcg (400 unit) tablet (Calcium 500 + D) diltiazem HCl 120 mg 120 mg PO Q24H 12/10/22 12/10/22 capsule,extended release 24 hr guaifenesin 1,200 mg tablet, 1,200 mg PO Q12H PRN cough 12/10/22 12/10/22 extended release 12 hr (Mucinex) levothyroxine 25 mcg tablet 50 mcg PO .daily 12/10/22 12/10/22 magnesium oxide 400 mg PO TID 12/10/22 12/10/22 metoprolol tartrate 100 mg tablet 100 mg PO Q12H 12/10/22 12/10/22 omeprazole 40 mg capsule,delayed 40 mg PO .every day at bedtime 12/10/22 12/10/22 release potassium chloride 20 mEq 20 meq PO .daily 12/10/22 12/10/22 tablet,extended release(part/cryst) rosuvastatin 20 mg tablet 20 mg PO .daily 12/10/22 12/10/22 spironolactone 25 mg tablet 25 mg PO .daily 12/10/22 12/10/22 timolol maleate 0.5 % eye drops 1 drp ophthalmic (eye) Q12H 12/10/22 12/10/22 zinc 50 mg tablet 50 mg PO QDAY 12/10/22 12/10/22 Allergies Allergy/AdvReac Type Severity Reaction Status Date / Time cortisone Allergy Severe Verified 12/26/22 15:50 Penicillins Allergy Severe Rash Verified 12/26/22 15:50 meperidine [From Demerol] AdvReac Severe Verified 12/26/22 15:50 iv dye Allergy Severe Hives Uncoded 12/26/22 15:50 BACTRIM Allergy Uncoded 12/26/22 15:50 Review of Systems ROS Narrative A ten point review of systems is negative except as noted above. PFSH [facility] Social History Smoking status: Never smoker Exam Narrative Exam Narrative: Nurses note and vital signs reviewed and patient is not hypoxic. General: The patient appears well and in no apparent distress. Patient is resting comfortably on cart. Skin: Warm, dry, no pallor noted. There is no rash noted. Head: Normocephalic, atraumatic Eye: Normal conjunctiva, no drainage Ears, Nose, Mouth, and Throat: oral mucosa is moist. Nares patent. Cardiovascular: Regular Rate and Rhythm Respiratory: Patient is in no distress, no accessory muscle use, good air movement present Back: non-tender GI: soft and nontender Musculoskeletal: The patient has no evidence of calf tenderness, no pitting edema, symmetrical pulses noted bilaterally Neurological: A&O, normal speech Psychiatric: Cooperative Constitutional Vital Signs - 24 hr 01/08/23 17:50 Temperature 97.8 F Pulse Rate [Monitor] 83 Respiratory Rate 16 Blood Pressure [Left Arm] 139/63 H Pulse Oximetry 97 Oxygen Delivery Method Room Air Course Vital Signs Vital signs: Vital Signs Temperature 97.8 F 01/08/23 17:50 Pulse Rate 83 01/08/23 17:50 Respiratory Rate 16 01/08/23 17:50 Blood Pressure 139/63 H 01/08/23 17:50 Pulse Oximetry 97 01/08/23 17:50 Oxygen Delivery Method Room Air 01/08/23 17:50 Temperature 97.8 F 01/08/23 17:50 Pulse Rate 83 01/08/23 17:50 Respiratory Rate 16 01/08/23 17:50 Blood Pressure 139/63 H 01/08/23 17:50 Pulse Oximetry 97 01/08/23 17:50 Oxygen Delivery Method Room Air 01/08/23 17:50 MDM - SOB/Dyspnea MDM Narrative Medical decision making narrative: tests are ordered and the patient is signed out to Dr. Abernathy. Differential Diagnosis Differential diagnosis: Likely acute exacerbation of chronic obstructive airways disease, congestive heart failure and community acquired pneumonia Lab Data Labs: Lab Results 01/08/23 Range/Units 18:22 WBC 12.6 H (4.0-11.0) 10^3/uL RBC 4.04 L (4.20-5.40) 10^6/uL Hgb 11.9 L (12.0-16.0) g/dL Hct 37.3 (36.0-48.0) % MCV 92.3 (81.0-99.0) fL MCH 29.5 (26.7-34.0) pg MCHC 31.9 (29.9-35.2) g/dL RDW 14.6 (11.0-15.0) % Plt Count 283 (150-450) 10^3/uL MPV 9.5 (9.5-13.5) fL Neut % (Auto) 64.8 (43.0-75.0) % Lymph % (Auto) 21.1 (20.5-60.0) % [place] % (Auto) 8.4 (1.7-12.0) % Eos % (Auto) 4.5 (0.9-7.0) % Baso % (Auto) 0.6 (0.2-2.0) % Neut # (Auto) 8.1 H (1.4-6.5) 10^3/uL Lymph # (Auto) 2.7 (1.2-3.8) 10^3/uL [place] # (Auto) 1.1 H (0.3-0.8) 10^3/uL Eos # (Auto) 0.6 (0.0-0.7) 10^3/uL Baso # (Auto) 0.1 (0.0-0.1) 10^3/uL Abs Immat Gran (auto) 0.07 H (0.00-0.03) 10^3/uL Imm/Tot Granulo (auto) 0.6 H (0.0-0.5) % Discharge Plan Discharge Chief Complaint: Shortness of Breath/Dyspnea Clinical Impression: Dyspnea Patient Disposition: Still a Patient Prescriptions / Home Meds: No Action albuterol sulfate 2.5 mg /3 mL (0.083 %) solution for nebulization 2.5 mg inhalation Q6H PRN (Reason: shortness of breath or wheezing) albuterol sulfate 90 mcg/actuation HFA aerosol inhaler 2 puff INHALATION Q6H PRN (Reason: shortness of breath or wheezing) Eliquis 5 mg tablet 5 mg PO Q12H aspirin 81 mg tablet,delayed release (DR/EC) 81 mg PO .daily bumetanide 2 mg tablet 2 mg PO BID B-complex with vitamin C Tablet 1 tab PO ONCE calcitriol 0.25 mcg capsule 0.25 mcg PO .daily calcium carbonate-vitamin D3 [Calcium 500 + D] 500 mg-10 mcg (400 unit) tablet 1 tab PO QDAY diltiazem HCl 120 mg capsule,extended release 24hr 120 mg PO Q24H Mucinex 1,200 mg tablet extended release 12hr 1,200 mg PO Q12H PRN (Reason: cough) levothyroxine 25 mcg tablet 50 mcg PO .daily magnesium oxide 400 mg magnesium capsule 400 mg PO TID metoprolol tartrate 100 mg tablet 100 mg PO Q12H omeprazole 40 mg capsule,delayed release(DR/EC) 40 mg PO .every day at bedtime timolol maleate 0.5 % drops 1 drp ophthalmic (eye) Q12H potassium chloride 20 mEq tablet,ER particles/crystals 20 meq PO .daily spironolactone 25 mg tablet 25 mg PO .daily rosuvastatin 20 mg tablet 20 mg PO .daily zinc 50 mg tablet 50 mg PO QDAY Referrals: Chris Valera [Primary Care Provider] - 1 week
[2023-01-08 18:43] LABS: Basophils Absolute Auto 0.1 10^3/uL (0.0-0.1); Basophils Percent Auto 0.6 % (0.2-2.0); Eosinophils Absolute Auto 0.6 10^3/uL (0.0-0.7); Eosinophils Percent Auto 4.5 % (0.9-7.0); Hematocrit 37.3 % (36.0-48.0); Hemoglobin 11.9 g/dL (12.0-16.0); Immature Granulocytes Abs Auto 0.07 10^3/uL (0.00-0.03); Immature Granulocytes Pct Auto 0.6 % (0.0-0.5); Lymphocytes Absolute Auto 2.7 10^3/uL (1.2-3.8); Lymphocytes Percent Auto 21.1 % (20.5-60.0); Mean Corpuscular HGB Conc 31.9 g/dL (29.9-35.2); Mean Corpuscular Hemoglobin 29.5 pg (26.7-34.0); Mean Corpuscular Volume 92.3 fL (81.0-99.0); Mean Platelet Volume 9.5 fL (9.5-13.5); Monocytes Absolute Auto 1.1 10^3/uL (0.3-0.8); Monocytes Percent Auto 8.4 % (1.7-12.0); Neutrophils Absolute Auto 8.1 10^3/uL (1.4-6.5); Neutrophils Percent Auto 64.8 % (43.0-75.0); Platelet Count 283 10^3/uL (150-450); Red Blood Count 4.04 10^6/uL (4.20-5.40); Red Cell Distribution Width 14.6 % (11.0-15.0); White Blood Count 12.6 10^3/uL (4.0-11.0)
[2023-01-08 19:05] LABS: Anion Gap 10.5; BUN Creatinine Ratio 24.6; Calcium 9.2 mg/dL (8.5-10.1); Carbon Dioxide 33.6 mmol/L (21.0-32.0); Chloride 98 mmol/L (98-107); Estimated GFR (African America 50 (>=60); Estimated GFR (Non-African Ame 41 (>=60); Glucose 104 mg/dL (74-106); Potassium 4.1 mmol/L (3.5-5.1); Sodium 138 mmol/L (136-145); Troponin I High Sensitivity 10.3 pg/mL (4.0-51.3)
== END 2023-01-08 19:40 | disposition home or self-care (01) ==
PROVIDERS: Emergency Medicine; Emergency Provider Internal Medicine; PCP Physician Assistant
DX: R06.00 Dyspnea, unspecified (principal); Z79.82 Long term (current) use of aspirin; Z79.899 Other long term (current) drug therapy; Z79.890 Hormone replacement therapy
CPT/HCPCS: 36415; 71045; 80048; 83880; 84484; 85025; 93005; 99285

== ENCOUNTER 2023-01-26 16:38 | Emergency (ER) | payer MEDICARE, MEDICAID, SELFPAY ==
[2023-01-26] VITALS (7 sets, daily range): BP systolic 140–159; BP diastolic 69–74; PULSE 60–63; RESP 14–22; TEMP 36.3; O2SAT 92–96; BMI 33.1
--- NOTE | 2023-01-26 17:04 | ED.GENADUL1 ---
HPI - General Adult General Chief complaint: Shortness of Breath/Dyspnea Stated complaint: Short of Breath Time Seen by Provider: 01/26/23 17:04 History of Present Illness HPI narrative: Patient presents to emergency department complaining of shortness of breath. Patient states that she has a history of atrial fibrillation, congestive heart failure and she was to make sure her blood work assignment has not been congestive heart failure. She denies any lower extremity edema, cramping. 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 She denies any fever, chills, or cough. She denies any chest pain. Patient denies any nausea, vomiting, diarrhea, or constipation. Denies any trauma. Related Data Home Medications Medication Instructions Recorded Confirmed B-complex with vitamin C 1 tab PO ONCE 12/10/22 01/26/23 albuterol sulfate 2.5 mg/3 mL 2.5 mg inhalation Q6H PRN 12/10/22 01/26/23 (0.083 %) solution for nebulization shortness of breath or wheezing albuterol sulfate 90 mcg/actuation 2 puff inhalation Q6H PRN 12/10/22 01/26/23 aerosol inhaler shortness of breath or wheezing apixaban 5 mg tablet (Eliquis) 5 mg PO Q12H 12/10/22 01/26/23 aspirin 81 mg tablet,delayed 81 mg PO .daily 12/10/22 01/26/23 release bumetanide 2 mg tablet 2 mg PO BID 12/10/22 01/26/23 calcitriol 0.25 mcg capsule 0.25 mcg PO .daily 12/10/22 01/26/23 calcium carbonate 500 mg-vitamin 1 tab PO QDAY 12/10/22 01/26/23 D3 10 mcg (400 unit) tablet (Calcium 500 + D) diltiazem HCl 120 mg 120 mg PO Q24H 12/10/22 01/26/23 capsule,extended release 24 hr guaifenesin 1,200 mg tablet, 1,200 mg PO Q12H PRN cough 12/10/22 01/26/23 extended release 12 hr (Mucinex) levothyroxine 25 mcg tablet 50 mcg PO .daily 12/10/22 01/26/23 magnesium oxide 400 mg PO TID 12/10/22 01/26/23 metoprolol tartrate 100 mg tablet 100 mg PO Q12H 12/10/22 01/26/23 omeprazole 40 mg capsule,delayed 40 mg PO .every day at bedtime 12/10/22 01/26/23 release potassium chloride 20 mEq 20 meq PO .daily 12/10/22 01/26/23 tablet,extended release(part/cryst) rosuvastatin 20 mg tablet 20 mg PO .daily 12/10/22 01/26/23 spironolactone 25 mg tablet 25 mg PO .daily 12/10/22 01/26/23 timolol maleate 0.5 % eye drops 1 drp ophthalmic (eye) Q12H 12/10/22 01/26/23 zinc 50 mg tablet 50 mg PO QDAY 12/10/22 01/26/23 Allergies Allergy/AdvReac Type Severity Reaction Status Date / Time cortisone Allergy Severe Verified 12/26/22 15:50 Penicillins Allergy Severe Rash Verified 12/26/22 15:50 meperidine [From Demerol] AdvReac Severe Verified 12/26/22 15:50 iv dye Allergy Severe Hives Uncoded 12/26/22 15:50 BACTRIM Allergy Uncoded 12/26/22 15:50 Review of Systems ROS Status of ROS 10 or more systems reviewed and unremarkable except as noted in history and below [facility] Social History Smoking status: Never smoker Exam Narrative Exam Narrative: Nurses notes and vital signs reviewed and patient is not hypoxic. General: Nontoxic, chronic ill and in no apparent distress. Skin: Warm, dry, no pallor noted. No Rash Head: Normocephalic, atraumatic. Neck: Supple, non-tender. Eye: Pupils are equal, round and EOMI. No scleral icterus. Ears, Nose, Mouth, and Throat: TM clear, no posterior oropharynx erythema or nasal mucosal hypertrophy, uvula is mid-line Oral mucosa is moist Cardiovascular: Regular Rate and Rhythm without murmur, gallop or rub. Respiratory: No accessory muscle use or respiratory distress. Lungs are clear to auscultation, no wheezing, rales or rhonchi Chest Wall: no tenderness Back: No midline thoracic or lumbar vertebral tenderness. No CVA tenderness Musculoskeletal: Left amputation of the hip, is no edema over the stump area. no calf or popliteal tenderness, no lower extremity edema/swelling GI: Abdomen is soft, non-distended. Normal bowel sounds. No masses appreciated. No tenderness to palpation. No rebound, guarding, or rigidity noted. Neurological: A&O x4. No cranial nerve dysfunction observed. No truncal ataxia. Moves all extremities. Sensation intact. Psychiatric: Cooperative and interactive. Normal mood and affect. Constitutional Vital Signs, click to edit/add: Last Vital Signs Temp 97.3 F L 01/26/23 17:03 Pulse 60 01/26/23 18:30 Resp 15 01/26/23 18:30 BP 140/70 H 01/26/23 18:30 Pulse Ox 93 L 01/26/23 18:30 O2 Del Method Room Air 01/26/23 18:31 Course Vital Signs Vital signs: Vital Signs Pulse Rate 63 01/26/23 17:01 Respiratory Rate 16 01/26/23 17:01 Temperature 97.3 F L 01/26/23 17:03 Pulse Rate 60 01/26/23 18:30 Respiratory Rate 15 01/26/23 18:30 Blood Pressure 140/70 H 01/26/23 18:30 Pulse Oximetry 93 L 01/26/23 18:30 Oxygen Delivery Method Room Air 01/26/23 18:31 Medical Decision Making MDM Narrative Medical decision making narrative: Labs and chest x-ray were done. They're unremarkable. Patient is not hypoxic. all results DISCUSSED patient. Patient is advised to continue her medications follow-up with her primary care doctor. At this time the patient is without objective evidence of an acute process requiring hospitalization or inpatient management. The patient has remained hemodynamically stable. No additional indication for emergent studies at this time. I answered all questions. Discussed discharge instructions including standard anticipatory guidance and what should prompt a return to the emergency department, including if they get worse are not getting better or develops any new or concerning symptoms. I've given them specific time frame in which to follow-up, and who to follow-up with. The patient demonstrates understanding. Patient is nontoxic and stable for discharge with outpatient follow-up. This note was created with the assistance of a speech recognition program. Although the intention is to generate documents that actually reflects the content of the visit, no guarantees can be provided that every mistake has been identified and corrected by editing. Lab Data Lab results reviewed: Yes I reviewed the patient's lab results Labs: Lab Results 01/26/23 Range/Units 17:18 WBC 14.6 H (4.0-11.0) 10^3/uL RBC 4.03 L (4.20-5.40) 10^6/uL Hgb 11.7 L (12.0-16.0) g/dL Hct 36.7 (36.0-48.0) % MCV 91.1 (81.0-99.0) fL MCH 29.0 (26.7-34.0) pg MCHC 31.9 (29.9-35.2) g/dL RDW 14.5 (11.0-15.0) % Plt Count 276 (150-450) 10^3/uL MPV 9.5 (9.5-13.5) fL Neut % (Auto) 67.9 (43.0-75.0) % Lymph % (Auto) 20.1 L (20.5-60.0) % [place] % (Auto) 7.7 (1.7-12.0) % Eos % (Auto) 3.2 (0.9-7.0) % Baso % (Auto) 0.5 (0.2-2.0) % Neut # (Auto) 9.9 H (1.4-6.5) 10^3/uL Lymph # (Auto) 2.9 (1.2-3.8) 10^3/uL [place] # (Auto) 1.1 H (0.3-0.8) 10^3/uL Eos # (Auto) 0.5 (0.0-0.7) 10^3/uL Baso # (Auto) 0.1 (0.0-0.1) 10^3/uL Abs Immat Gran (auto) 0.09 H (0.00-0.03) 10^3/uL Imm/Tot Granulo (auto) 0.6 H (0.0-0.5) % Sodium 136 (136-145) mmol/L Potassium 4.1 (3.5-5.1) mmol/L Chloride 96 L (98-107) mmol/L Carbon Dioxide 32.3 H (21.0-32.0) mmol/L Anion Gap 11.8 BUN 34.0 H (7.0-18.0) mg/dL Creatinine 1.51 H (0.55-1.02) mg/dL Est GFR ( Amer) 41 L (>=60) Est GFR (Non-Af Amer) 34 L (>=60) BUN/Creatinine Ratio 22.5 Glucose 119 H (74-106) mg/dL Calcium 9.0 (8.5-10.1) mg/dL Total Bilirubin 0.2 (0.2-1.0) mg/dL AST 16 (15-37) U/L ALT 17 (14-59) U/L Alkaline Phosphatase 108 (46-116) U/L Troponin I High Sens 10.8 (4.0-51.3) pg/mL NT-Pro-B Natriuret Pep 1828.0 H* (<=1800.0) pg/mL Total Protein 7.6 (6.4-8.2) g/dL Albumin 3.6 (3.4-5.0) g/dL Globulin 4.0 g/dL Albumin/Globulin Ratio 0.9 ECG Data Attestation: I personally reviewed and interpreted this ECG as follows: Discharge Plan Discharge Chief Complaint: Shortness of Breath/Dyspnea Clinical Impression: Dyspnea Patient Disposition: Home, Self-Care Time of Disposition Decision: 18:40 Condition: Good Mode of Transportation: Private Vehicle Prescriptions / Home Meds: No Action albuterol sulfate 2.5 mg /3 mL (0.083 %) solution for nebulization 2.5 mg inhalation Q6H PRN (Reason: shortness of breath or wheezing) albuterol sulfate 90 mcg/actuation HFA aerosol inhaler 2 puff INHALATION Q6H PRN (Reason: shortness of breath or wheezing) Eliquis 5 mg tablet 5 mg PO Q12H aspirin 81 mg tablet,delayed release (DR/EC) 81 mg PO .daily bumetanide 2 mg tablet 2 mg PO BID B-complex with vitamin C Tablet 1 tab PO ONCE calcitriol 0.25 mcg capsule 0.25 mcg PO .daily calcium carbonate-vitamin D3 [Calcium 500 + D] 500 mg-10 mcg (400 unit) tablet 1 tab PO QDAY diltiazem HCl 120 mg capsule,extended release 24hr 120 mg PO Q24H Mucinex 1,200 mg tablet extended release 12hr 1,200 mg PO Q12H PRN (Reason: cough) levothyroxine 25 mcg tablet 50 mcg PO .daily magnesium oxide 400 mg magnesium capsule 400 mg PO TID metoprolol tartrate 100 mg tablet 100 mg PO Q12H omeprazole 40 mg capsule,delayed release(DR/EC) 40 mg PO .every day at bedtime timolol maleate 0.5 % drops 1 drp ophthalmic (eye) Q12H potassium chloride 20 mEq tablet,ER particles/crystals 20 meq PO .daily spironolactone 25 mg tablet 25 mg PO .daily rosuvastatin 20 mg tablet 20 mg PO .daily zinc 50 mg tablet 50 mg PO QDAY Instructions: Dyspnea (ED) Stand Alone Forms: Portal Instructions Referrals: Chris Valera [Primary Care Provider] - 1 week Discharge Date/Time: 01/26/23 19:03
--- NOTE | 2023-01-26 17:12 | XR_ITS ---
The [address] [address] Patient Name: LOKI SALEH MRN: [id number] date: 1945 Sex: F Assigned Patient Location: ER Current Patient Location: ER Accession/Order Number: [id number] Exam Date: 01/26/2023 17:28 Report Date: 01/26/2023 17:53 At the request of: HEATHER CLAROS Procedure: XR chest 1V EXAM: Chest x-ray HISTORY: . dyspnea . COMPARISON: 01/08/2023 TECHNIQUE: Single view of the chest. FINDINGS: Heart is slightly enlarged. Pacer is noted. Vascularity is unremarkable. Lungs are free of focal infiltrates. Atherosclerotic changes of the thoracic aorta are noted. Median sternotomy sutures are noted. XR/XR chest 1V IMPRESSION: 1. Slight cardiac enlargement with pacer noted. 2. Lungs are free of focal infiltrates. Electronically authenticated by: NADEGE OCASIO Date: 01/26/2023 17:53
--- NOTE | 2023-01-26 17:12 | ECG_ITS ---
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
[2023-01-26 17:47] LABS: Basophils Absolute Auto 0.1 10^3/uL (0.0-0.1); Basophils Percent Auto 0.5 % (0.2-2.0); Eosinophils Absolute Auto 0.5 10^3/uL (0.0-0.7); Eosinophils Percent Auto 3.2 % (0.9-7.0); Hematocrit 36.7 % (36.0-48.0); Hemoglobin 11.7 g/dL (12.0-16.0); Immature Granulocytes Abs Auto 0.09 10^3/uL (0.00-0.03); Immature Granulocytes Pct Auto 0.6 % (0.0-0.5); Lymphocytes Absolute Auto 2.9 10^3/uL (1.2-3.8); Lymphocytes Percent Auto 20.1 % (20.5-60.0); Mean Corpuscular HGB Conc 31.9 g/dL (29.9-35.2); Mean Corpuscular Volume 91.1 fL (81.0-99.0); Mean Platelet Volume 9.5 fL (9.5-13.5); Monocytes Absolute Auto 1.1 10^3/uL (0.3-0.8); Monocytes Percent Auto 7.7 % (1.7-12.0); Neutrophils Absolute Auto 9.9 10^3/uL (1.4-6.5); Neutrophils Percent Auto 67.9 % (43.0-75.0); Platelet Count 276 10^3/uL (150-450); Red Blood Count 4.03 10^6/uL (4.20-5.40); Red Cell Distribution Width 14.5 % (11.0-15.0); White Blood Count 14.6 10^3/uL (4.0-11.0)
[2023-01-26 18:11] LABS: Alanine Aminotransferase 17 U/L (14-59); Albumin Globulin Ratio 0.9; Albumin Level 3.6 g/dL (3.4-5.0); Alkaline Phosphatase 108 U/L (46-116); Anion Gap 11.8; Aspartate Amino Transferase 16 U/L (15-37); BUN Creatinine Ratio 22.5; Bilirubin Total 0.2 mg/dL (0.2-1.0); Carbon Dioxide 32.3 mmol/L (21.0-32.0); Chloride 96 mmol/L (98-107); Estimated GFR (African America 41 (>=60); Estimated GFR (Non-African Ame 34 (>=60); Glucose 119 mg/dL (74-106); Potassium 4.1 mmol/L (3.5-5.1); Sodium 136 mmol/L (136-145); Total Protein 7.6 g/dL (6.4-8.2); Troponin I High Sensitivity 10.8 pg/mL (4.0-51.3)
== END 2023-01-26 19:03 | disposition home or self-care (01) ==
PROVIDERS: Emergency Provider Emergency Medicine; PCP Physician Assistant
DX: R06.00 Dyspnea, unspecified (principal); I48.91 Unspecified atrial fibrillation; I50.9 Heart failure, unspecified; Z79.01 Long term (current) use of anticoagulants; Z79.82 Long term (current) use of aspirin; Z79.899 Other long term (current) drug therapy; Z79.890 Hormone replacement therapy; Z89.622 Acquired absence of left hip joint
CPT/HCPCS: 36415; 71045; 80053; 83880; 84484; 85025; 93005; 99285

== ENCOUNTER 2023-03-10 18:40 | Emergency (ER) | payer MEDICARE, MEDICAID, SELFPAY ==
[2023-03-10 18:43] VITALS: BP 138/73; PULSE 63; RESP 16; TEMP 36.4; O2SAT 96; BMI 32.2
[2023-03-10 19:43] LABS: Basophils Absolute Auto 0.1 10^3/uL (0.0-0.1); Basophils Percent Auto 0.5 % (0.2-2.0); Eosinophils Absolute Auto 0.4 10^3/uL (0.0-0.7); Hematocrit 35.9 % (36.0-48.0); Hemoglobin 11.5 g/dL (12.0-16.0); Immature Granulocytes Abs Auto 0.09 10^3/uL (0.00-0.03); Immature Granulocytes Pct Auto 0.6 % (0.0-0.5); Lymphocytes Absolute Auto 2.6 10^3/uL (1.2-3.8); Lymphocytes Percent Auto 18.7 % (20.5-60.0); Mean Corpuscular Hemoglobin 28.6 pg (26.7-34.0); Mean Corpuscular Volume 89.3 fL (81.0-99.0); Mean Platelet Volume 9.4 fL (9.5-13.5); Monocytes Absolute Auto 1.1 10^3/uL (0.3-0.8); Monocytes Percent Auto 7.8 % (1.7-12.0); Neutrophils Absolute Auto 9.6 10^3/uL (1.4-6.5); Neutrophils Percent Auto 69.4 % (43.0-75.0); Platelet Count 274 10^3/uL (150-450); Red Blood Count 4.02 10^6/uL (4.20-5.40); Red Cell Distribution Width 14.7 % (11.0-15.0); White Blood Count 13.9 10^3/uL (4.0-11.0)
[2023-03-10 19:59] LABS: Alanine Aminotransferase 20 U/L (14-59); Albumin Globulin Ratio 0.8; Albumin Level 3.5 g/dL (3.4-5.0); Alkaline Phosphatase 96 U/L (46-116); Anion Gap 10.3; Aspartate Amino Transferase 13 U/L (15-37); Bilirubin Total 0.2 mg/dL (0.2-1.0); Calcium 8.9 mg/dL (8.5-10.1); Carbon Dioxide 33.8 mmol/L (21.0-32.0); Chloride 96 mmol/L (98-107); Estimated GFR (African America 41 (>=60); Estimated GFR (Non-African Ame 34 (>=60); Globulin 4.3 g/dL; Glucose 155 mg/dL (74-106); Potassium 4.1 mmol/L (3.5-5.1); Sodium 136 mmol/L (136-145); Total Protein 7.8 g/dL (6.4-8.2)
[2023-03-10 20:03] LABS: INR 1.06; Prothrombin Time 11.2 sec (9.0-11.6)
--- NOTE | 2023-03-10 20:21 | ECG_ITS ---
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
[2023-03-10 20:23] VITALS: RESP 18; O2SAT 98
--- NOTE | 2023-03-10 20:23 | ED.GIBLEED1 ---
HPI - GI Bleed General Chief complaint: GI Bleed Stated complaint: BLOOD IN STOOL Time Seen by Provider: 03/10/23 18:50 Source: patient Mode of arrival: Wheelchair History of Present Illness HPI Narrative: Presents to emergency department complaining of hematochezia. She states she's had 3 bowel movements mixed with bright red blood today. She denies any dizziness, palpitations, lightheadedness. She denies any fever, chills, or abdominal pain. She states she takes in liquids. She has a colonoscopy scheduled in 2 weeks and feels that he should be moved up sooner. She says she is concerned that this could be cancer. She also is complaining of vaginal pruritus. States she is not sure if she has a urinary tract infection. She denies any flank pain, hematuria, or vaginal bleeding, discharge. He states she's had bleeding like this before. They said happens only when she is having a bowel movement and that she has hemorrhoids.Denies any tarry stools. MD complaint: Reports gross hematochezia Related Data Home Medications Medication Instructions Recorded Confirmed B-complex with vitamin C 1 tab PO DAILY 12/10/22 02/01/23 albuterol sulfate 90 mcg/actuation 2 puff inhalation Q4H PRN 12/10/22 02/01/23 aerosol inhaler shortness of breath or wheezing apixaban 5 mg tablet (Eliquis) 5 mg PO Q12H 12/10/22 02/01/23 aspirin 81 mg tablet,delayed 81 mg PO .daily 12/10/22 02/01/23 release bumetanide 2 mg tablet 2 mg PO DAILY 12/10/22 02/01/23 diltiazem HCl 120 mg 120 mg PO Q24H 12/10/22 02/01/23 capsule,extended release 24 hr levothyroxine 25 mcg tablet 50 mcg PO .daily 12/10/22 02/01/23 magnesium oxide 400 mg PO QID 12/10/22 02/01/23 omeprazole 40 mg capsule,delayed 40 mg PO .every day at bedtime 12/10/22 02/01/23 release rosuvastatin 20 mg tablet 20 mg PO .daily 12/10/22 02/01/23 spironolactone 25 mg tablet 25 mg PO .daily 12/10/22 02/01/23 timolol maleate 0.5 % eye drops 1 drp ophthalmic (eye) Q12H 12/10/22 02/01/23 calcium carbonate 600 mg calcium 300 mg PO TID 02/01/23 02/01/23 (1,500 mg) tablet cholecalciferol (vitamin D3) 50 50 mcg PO DAILY 02/01/23 02/01/23 mcg (2,000 unit) capsule (Vitamin D3) fexofenadine 60 mg tablet 60 mg PO BID 02/01/23 02/01/23 guaifenesin 100 mg/5 mL oral 200 mg PO Q4H PRN cough 02/01/23 02/01/23 liquid (Adult Wal-Tussin) metformin 500 mg tablet 500 mg PO DAILY 02/01/23 02/01/23 metoprolol tartrate 75 mg tablet 75 mg PO BID 02/01/23 02/01/23 potassium chloride 20 mEq 20 meq PO BID 02/01/23 02/01/23 tablet,extended release(part/cryst) (Klor-Con M) tiotropium bromide 2.5 2 inh inhalation DAILY 02/01/23 02/01/23 mcg/actuation mist for inhalation (Spiriva Respimat) Previous Rx's Medication Instructions Recorded fluconazole 150 mg tablet 150 mg PO DAILY 1 dose #1 tab 03/10/23 (Diflucan) nitrofurantoin 100 mg PO DAILY #10 caps 03/10/23 monohydrate/macrocrystals 100 mg capsule (Macrobid) Allergies Allergy/AdvReac Type Severity Reaction Status Date / Time cortisone Allergy Severe Verified 12/26/22 15:50 Penicillins Allergy Severe Rash Verified 12/26/22 15:50 codeine Allergy Unknown Verified 02/01/23 13:33 phenazopyridine Allergy Unknown Verified 02/01/23 13:33 [From Pyridium] meperidine [From Demerol] AdvReac Severe Verified 12/26/22 15:50 iv dye Allergy Severe Hives Uncoded 12/26/22 15:50 BACTRIM Allergy Uncoded 12/26/22 15:50 PENICILLIN AdvReac Unknown Uncoded 02/01/23 13:33 Review of Systems ROS Status of ROS 10 or more systems reviewed and unremarkable except as noted in history and below [facility] Medical History (Updated 03/10/23 @ 21:36 by Clara Wren MD) Surgical History (Updated 02/01/23 @ 13:30 by Isela Aguirre, RN) Family History (Updated 02/01/23 @ 13:30 by Isela Aguirre, RN) Other Family history of diabetes mellitus Heart disease Social History (Updated 02/01/23 @ 13:31 by Isela Aguirre, RN) Within the past year, how often did you have a drink containing alcohol: never Score interpretation: A score less than 3 is consistent with normal alcohol consumption. Smoking status: Never smoker Non-prescribed substance use: denies use Highest level of school completed/degree received: high school graduate Exam Narrative Exam Narrative: Nurses notes and vital signs reviewed and patient is not hypoxic. General: Nontoxic, Well-appearing and in no apparent distress. Skin: Warm, dry, no pallor noted. No Rash Head: Normocephalic, atraumatic. Neck: Supple, non-tender. Eye: Pupils are equal, round and EOMI. No scleral icterus. Ears, Nose, Mouth, and Throat: TM clear, no posterior oropharynx erythema or nasal mucosal hypertrophy, uvula is mid-line Oral mucosa is moist Cardiovascular: Regular Rate and Rhythm without murmur, gallop or rub. Respiratory: No accessory muscle use or respiratory distress. Lungs are clear to auscultation, no wheezing, rales or rhonchi Chest Wall: no tenderness Back: No midline thoracic or lumbar vertebral tenderness. No CVA tenderness Musculoskeletal:Left above-knee amputation amputation, normal ROM, no calf or popliteal tenderness, no lower extremity edema/swelling GI: Abdomen is soft, non-distended. Normal bowel sounds. No masses appreciated. No tenderness to palpation. No rebound, guarding, or rigidity noted. Rectal: Nonthrombosed hemorrhoids noted. Soft yellow stool positive for Hemoccult. Vaginal exam: No lesions noted to the labia majora. There is small amount of erythema and excoriation noted to the labia minora. No signs of bacterial infection or abscess. Neurological: A&O x4. No cranial nerve dysfunction observed. No truncal ataxia. Psychiatric: Cooperative and interactive. Normal mood and affect. Constitutional Vital Signs, click to edit/add: Last Vital Signs Temp 97.6 F 03/10/23 18:43 Pulse 63 03/10/23 18:43 Resp 18 03/10/23 20:23 BP 138/73 03/10/23 18:43 Pulse Ox 98 03/10/23 20:23 O2 Del Method Room Air 03/10/23 18:43 Course Vital Signs Vital signs: Vital Signs Temperature 97.6 F 03/10/23 18:43 Pulse Rate 63 03/10/23 18:43 Respiratory Rate 16 03/10/23 18:43 Blood Pressure 138/73 03/10/23 18:43 Pulse Oximetry 96 03/10/23 18:43 Oxygen Delivery Method Room Air 03/10/23 18:43 Temperature 97.6 F 03/10/23 18:43 Pulse Rate 63 03/10/23 18:43 Respiratory Rate 18 03/10/23 20:23 Blood Pressure 138/73 03/10/23 18:43 Pulse Oximetry 98 03/10/23 20:23 Oxygen Delivery Method Room Air 03/10/23 18:43 MDM - GI Bleed MDM Narrative Medical decision making narrative: Labs studies were done and are unremarkable. The patient's hemoglobin is stable. Patient is not showing any signs of hemorrhaging. Vital signs are stable. Patient urinalysis shows urinary tract infection. She was initially given Cipro but stated that normally they give her Macrobid. She was given a prescription for Diflucan to take after she finishes the Macrobid. She is advised the urinalysis sent for culture. Follow-up with the surgical to do with the plan for colonoscopy. Abdomen is benign and nonsurgical. At this time the patient is without objective evidence of an acute process requiring hospitalization or inpatient management. The patient has remained hemodynamically stable. No additional indication for emergent studies at this time. I answered all questions. Discussed discharge instructions including standard anticipatory guidance and what should prompt a return to the emergency department, including if they get worse are not getting better or develops any new or concerning symptoms. I've given them specific time frame in which to follow-up, and who to follow-up with. The patient demonstrates understanding. Patient is nontoxic and stable for discharge with outpatient follow-up. This note was created with the assistance of a speech recognition program. Although the intention is to generate documents that actually reflects the content of the visit, no guarantees can be provided that every mistake has been identified and corrected by editing. Differential Diagnosis Differential diagnosis: Likely hemorrhoids, Lower gastrointestinal hemorrhage and hematochezia Medical Records Attestation: I reviewed the patient's medical records. Lab Data Attestation: I reviewed the patient's lab results. Labs: Lab Results 03/10/23 03/10/23 03/10/23 Range/Units 19:28 20:40 21:17 WBC 13.9 H (4.0-11.0) 10^3/uL RBC 4.02 L (4.20-5.40) 10^6/uL Hgb 11.5 L (12.0-16.0) g/dL Hct 35.9 L (36.0-48.0) % MCV 89.3 (81.0-99.0) fL MCH 28.6 (26.7-34.0) pg MCHC 32.0 (29.9-35.2) g/dL RDW 14.7 (11.0-15.0) % Plt Count 274 (150-450) 10^3/uL MPV 9.4 L (9.5-13.5) fL Neut % (Auto) 69.4 (43.0-75.0) % Lymph % (Auto) 18.7 L (20.5-60.0) % [place] % (Auto) 7.8 (1.7-12.0) % Eos % (Auto) 3.0 (0.9-7.0) % Baso % (Auto) 0.5 (0.2-2.0) % Neut # (Auto) 9.6 H (1.4-6.5) 10^3/uL Lymph # (Auto) 2.6 (1.2-3.8) 10^3/uL [place] # (Auto) 1.1 H (0.3-0.8) 10^3/uL Eos # (Auto) 0.4 (0.0-0.7) 10^3/uL Baso # (Auto) 0.1 (0.0-0.1) 10^3/uL Abs Immat Gran (auto) 0.09 H (0.00-0.03) 10^3/uL Imm/Tot Granulo (auto) 0.6 H (0.0-0.5) % PT 11.2 (9.0-11.6) sec INR 1.06 APTT 35.0 (22.3-36.2) sec Sodium 136 (136-145) mmol/L Potassium 4.1 (3.5-5.1) mmol/L Chloride 96 L (98-107) mmol/L Carbon Dioxide 33.8 H (21.0-32.0) mmol/L Anion Gap 10.3 BUN 42.0 H (7.0-18.0) mg/dL Creatinine 1.50 H (0.55-1.02) mg/dL Est GFR ( Amer) 41 L (>=60) Est GFR (Non-Af Amer) 34 L (>=60) BUN/Creatinine Ratio 28.0 Glucose 155 H (74-106) mg/dL Calcium 8.9 (8.5-10.1) mg/dL Total Bilirubin 0.2 (0.2-1.0) mg/dL AST 13 L (15-37) U/L ALT 20 (14-59) U/L Alkaline Phosphatase 96 (46-116) U/L Total Protein 7.8 (6.4-8.2) g/dL Albumin 3.5 (3.4-5.0) g/dL Globulin 4.3 g/dL Albumin/Globulin Ratio 0.8 Urine Color Lt. yellow (YELLOW) Urine Clarity Clear (CLEAR) Urine pH 7.0 (5.0-9.0) Ur Specific [place] 1.010 (1.005-1.025) Urine Protein Negative (NEG/TRACE) mg/dL Urine Glucose (UA) Negative (NEGATIVE) mg/dL Urine Ketones Negative (NEGATIVE) mg/dL Urine Occult Blood Trace-i (NEGATIVE) Urine Nitrite Negative (NEGATIVE) Urine Bilirubin Negative (NEGATIVE) Urine Urobilinogen 0.2 (0.2-1.0) EU/dL Ur Leukocyte Esterase Large A (NEGATIVE) Urine RBC 0-2 (0-2) #/HPF Urine WBC 20-50 A (NONE SEEN) #/HPF Ur Squamous Epith Cells Rare (NONE/RARE) #/LPF Urine Crystals None seen (None Seen) #/HPF Urine Bacteria None seen (NONE SEEN) #/HPF Urine Casts Seen A (NONE SEEN) #/LPF Hyaline Casts Rare Urine Mucus None seen (NONE SEEN) Ur Culture Indicated? Yes Stool Occult Blood Positive A Discharge Plan Discharge Chief Complaint: GI Bleed Clinical Impression: Tess infection of genital region, Acute UTI, Hematochezia, Hemorrhoids Patient Disposition: Home, Self-Care Time of Disposition Decision: 21:34 Condition: Good Mode of Transportation: Private Vehicle Prescriptions / Home Meds: New fluconazole [Diflucan] 150 mg tablet 150 mg PO DAILY Qty: 1 0RF Rx Instructions: administer on after finishing antibiotics nitrofurantoin monohyd/m-cryst [Macrobid] 100 mg capsule 100 mg PO DAILY Qty: 10 0RF No Action calcium carbonate 600 mg calcium (1,500 mg) tablet 300 mg PO TID fexofenadine 60 mg tablet 60 mg PO BID guaifenesin [Adult Wal-Tussin] 100 mg/5 mL liquid 200 mg PO Q4H PRN (Reason: cough) potassium chloride [Klor-Con M20] 20 mEq tablet,ER particles/crystals 20 meq PO BID metformin 500 mg tablet 500 mg PO DAILY metoprolol tartrate 75 mg tablet 75 mg PO BID Spiriva Respimat 2.5 mcg/actuation mist 2 inh inhalation DAILY cholecalciferol (vitamin D3) [Vitamin D3] 50 mcg (2,000 unit) capsule 50 mcg PO DAILY albuterol sulfate 90 mcg/actuation HFA aerosol inhaler 2 puff INHALATION Q4H PRN (Reason: shortness of breath or wheezing) Eliquis 5 mg tablet 5 mg PO Q12H aspirin 81 mg tablet,delayed release (DR/EC) 81 mg PO .daily bumetanide 2 mg tablet 2 mg PO DAILY B-complex with vitamin C Tablet 1 tab PO DAILY diltiazem HCl 120 mg capsule,extended release 24hr 120 mg PO Q24H levothyroxine 25 mcg tablet 50 mcg PO .daily magnesium oxide 400 mg magnesium capsule 400 mg PO QID omeprazole 40 mg capsule,delayed release(DR/EC) 40 mg PO .every day at bedtime timolol maleate 0.5 % drops 1 drp ophthalmic (eye) Q12H spironolactone 25 mg tablet 25 mg PO .daily rosuvastatin 20 mg tablet 20 mg PO .daily Instructions: Rectal Bleeding (ED), Urinary Tract Infection in Women (ED), Yeast Infection (ED) Stand Alone Forms: Portal Instructions Referrals: Chris Valera [Primary Care Provider] - 1 week Wilmer Stover MD [Physician] - 1 week Discharge Date/Time: 03/10/23 21:59
--- NOTE | 2023-03-10 20:27 | PC.NURSE ---
Pt states that she is suppose to be having colonscopy on the but does not know the Dr Name. pt states that her last bm was this am. Pt has tenderness in the lt lower quad. Bowel sounds active X4
[2023-03-10 20:59] LABS: Occult Blood Positive
[2023-03-10 21:23] LABS: Bilirubin Urine NEGATIVE (NEGATIVE); Blood Urine TRACE-I (NEGATIVE); Clarity Urine CLEAR (CLEAR); Color Urine LT. YELLOW (YELLOW); Glucose Urine UA NEGATIVE (NEGATIVE); Ketones Urine NEGATIVE (NEGATIVE); Leukocyte Esterase Urine LARGE (NEGATIVE); Nitrite Urine NEGATIVE (NEGATIVE); Protein Urine NEGATIVE (NEG/TRACE); Urobilinogen Urine 0.2 EU/dL (0.2-1.0)
[2023-03-10 21:25] LABS: Urine Microscopic Indicated YES
[2023-03-10 21:30] LABS: Bacteria Urine NONE SEEN #/HPF (NONE SEEN); Cast Seen? SEEN #/LPF (NONE SEEN); Crystals Seen? None Seen #/HPF (None Seen); Hyaline Casts Urine RARE; Mucus Urine NONE SEEN (NONE SEEN); RBC Urine 0-2 #/HPF (0-2); Squamous Epithelial Cell Urine RARE #/LPF (NONE/RARE); Urine Culture Indicated YES; WBC Urine 20-50 #/HPF (NONE SEEN)
== END 2023-03-10 21:59 | disposition home or self-care (01) ==
PROVIDERS: Physician Assistant; Emergency Provider Emergency Medicine; PCP Physician Assistant
DX: N39.0 Urinary tract infection, site not specified (principal); B37.49 Other urogenital candidiasis; K64.9 Unspecified hemorrhoids; Z79.82 Long term (current) use of aspirin; Z79.84 Long term (current) use of oral hypoglycemic drugs; Z89.612 Acquired absence of left leg above knee; K92.1 Melena
CPT/HCPCS: 36415; 80053; 81001; 85025; 85610; 85730; 87086; 93005; 99284; G0328